=== PATIENT | female | born 1975 | race African-American/Black ===

== ENCOUNTER 2024-11-01 06:16 | Emergency (ER) | payer SELFPAY ==
[2024-11-01] MEDS ORDERED: Sodium Chloride 0.9% 10 ML Syringe FLUSH PRN (06:33)
[2024-11-01] MEDS: Ondansetron 4 MG/2 ML SDV ONE ×2 (06:40)
[2024-11-01] MEDS: Sodium Chloride 0.9% 1,000 ML IV SCH ×2 (06:40→08:30)
[2024-11-01] MEDS: Sodium Chloride 0.9% 1,000 ML ONE ×2 (06:40→08:40)
[2024-11-01 06:46] LABS: BASOPHILS ABSOLUTE AUTO 0.01 10^3/uL (0.00-0.10); BASOPHILS PERCENT AUTO 0.1 % (0.0-1.0); EOSINOPHILS ABSOLUTE AUTO 0.01 10^3/uL (0.10-0.30); EOSINOPHILS PERCENT AUTO 0.1 % (1.0-3.0); HEMATOCRIT 43.5 % (37.0-47.0); HEMOGLOBIN 14.7 g/dL (12.0-16.0); IMMATURE GRAN ABSOLUTE AUTO 0.03 10^3/uL (0.00-0.04); IMMATURE GRAN PERCENT AUTO 0.4 % (0.0-0.4); LYMPHOCYTES ABSOLUTE AUTO 1.02 10^3/uL (1.00-4.00); LYMPHOCYTES PERCENT AUTO 13.8 % (20.0-40.0); MEAN CORPUSCULAR HEMOGLOBIN 30.9 pg (27.0-31.0); MEAN CORPUSCULAR HGB CONC 33.8 g/dL (32.0-36.0); MEAN CORPUSCULAR VOLUME 91.6 fL (82.0-92.0); MEAN PLATELET VOLUME 9.2 fL (7.4-10.4); MONOCYTES PERCENT AUTO 1.4 % (2.0-8.0); NEUTROPHILS ABSOLUTE AUTO 6.21 10^3/uL (2.50-7.00); NEUTROPHILS PERCENT AUTO 84.2 % (50.0-70.0); PLATELET COUNT,PLT 318 10^3/uL (150-400); RED BLOOD CELL COUNT 4.75 10^6/uL (3.80-5.50); RED CELL DISTRIBUTION WIDTH 11.1 % (11.5-14.5); WHITE BLOOD CELL COUNT,WBC 7.38 10^3/uL (5.00-10.00)
[2024-11-01] MEDS: Ondansetron 4 MG/2 ML SDV IVPUSH ONE (06:48)
[2024-11-01] MEDS: Diltiazem 25 MG/5 ML SDV IVPUSH ONE (06:56)
[2024-11-01] MEDS: Amiodarone/Dextrose,Iso-Osmotic 150 MG/100 ML Premix Bag IV ONE (07:00)
[2024-11-01 07:03] LABS: B-TYPE NATRIURETIC PEPTIDE,BNP 9 pg/mL (0-100)
[2024-11-01 07:05] LABS: ALANINE AMINOTRANSFERASE,ALT 39 U/L (14-63); ALBUMIN 3.69 g/dL (3.40-5.00); ALKALINE PHOSPHATASE 85 U/L (46-116); AMYLASE 80 U/L (25-125); ASPARTATE AMNIOTRANSFERASE,AST 43 U/L (15-37); BILIRUBIN TOTAL 0.4 mg/dL (0.2-1.0); BLOOD UREA NITROGEN,BUN 43 mg/dL (7-18); CALCIUM 9.2 mg/dL (8.7-10.3); CARBON DIOXIDE,CO2 22.6 mmol/L (21.0-32.0); CHLORIDE,CL 103 mmol/L (98-107); CREATININE 2.04 mg/dL (0.51-1.17); GLUCOSE RANDOM 75 mg/dL (70-140); LIPASE 26 U/L (16-77); POTASSIUM,K 3.6 mmol/L (3.5-5.1); PROTEIN TOTAL,TP 7.5 g/dL (6.4-8.2); SODIUM,NA 148 mmol/L (136-145)
[2024-11-01 07:08] LABS: ESTIMATED GFR 29 mL/min (>=60)
[2024-11-01 07:09] LABS: LACTIC ACID 4.7 mmol/L (0.4-2.0)
[2024-11-01] MEDS: Amiodarone 360 MG/200 ML 360 MG/200 ML BAG IV SCH (07:19)
[2024-11-01] MEDS: Heparin Sodium 5,000 Units/ML Vial IVPUSH ONE (07:56)
[2024-11-01] MEDS: Heparin Sodium/D5W 250 ML IV SCH (07:59)
== END 2024-11-01 08:37 ==
LOC: KA.ED 06:16
DX: I95.9 Hypotension, unspecified (principal); I48.91 Unspecified atrial fibrillation; I10 Essential (primary) hypertension; R79.89 Other specified abnormal findings of blood chemistry; R11.2 Nausea with vomiting, unspecified; R74.02 Elevation of levels of lactic acid dehydrogenase [LDH]
CPT/HCPCS: 36415; 71045; 80053; 82150; 83605; 83690; 83880; 84484; 85025; 85379; 85730; 87428-QW; 93010; 96361; 96365; 96368; 96375; 99285-25; 99291; J0282; J1644; J2405; J7030